=== PATIENT | female | born 1970 | race Caucasian/White ===

== ENCOUNTER → 2020-10-18 10:04 | Outpatient (REF) | payer OTHER, SELFPAY | LOC: HO.SL 10:04 | PROVIDERS: Visit Provider Internal Medicine | DX: G47.33 Obstructive sleep apnea (adult) (pediatric) (principal) | CPT/HCPCS: 95806 ==

== ENCOUNTER 2023-11-23 16:04 | Outpatient (AMB) | payer OTHER, SELFPAY ==
--- NOTE | 2023-11-23 16:10 | MHC.PC.OV ---
Vital Signs 11/23/23 16:15 Height 5 ft 2 in Weight 235 lb 8 oz BMI 43.1 BP 108/70 Blood Pressure Location Lt brachial Position Sitting Respiration 14 Pulse 72 Pulse Source Pulse Oximeter Temp 98.1 F Temp Source Oral Pulse Oximetry (%) 97 Intake Visit Reasons: rash right leg/all over legs/ nausea Intake Note: Rash on both legs. Shooting pain down left leg. Did yard work on Sunday, rash appeared on Sunday. Chest pain this morning that she initially thought was a heart attack but then assumed it was anxiety. She took anxiety pill and felt better. Feeling nauseous. Blood on toilet paper two days ago. Swallowed fly larvae that was in her walnuts on Sunday. Physical exam (Primary Care) Vital Signs: Last Vital Signs Temp 98.1 F 11/23/23 16:15 Pulse 72 11/23/23 16:15 Resp 14 11/23/23 16:15 BP 108/70 11/23/23 16:15 Pulse Ox 97 11/23/23 16:15 BMI result Body Mass Index 43.1 Coding
[2023-11-23 16:15] VITALS: BP 108/70; PULSE 72; RESP 14; TEMP 36.7; O2SAT 97; BMI 43.1
--- NOTE | 2023-11-23 16:19 | AM.OFFWIN_ITS ---
Intake Vital Signs 11/23/23 16:15 Height 5 ft 2 in Weight 235 lb 8 oz BMI 43.1 BP 108/70 Blood Pressure Location Lt brachial Position Sitting Respiration 14 Pulse 72 Pulse Source Pulse Oximeter Temp 98.1 F Temp Source Oral Pulse Oximetry (%) 97 Intake Visit Reasons: rash right leg/all over legs/ nausea Intake Note: Rash on both legs. Shooting pain down left leg. Did yard work on Sunday, rash appeared on Sunday. Chest pain this morning that she initially thought was a heart attack but then assumed it was anxiety. She took anxiety pill and felt better. Feeling nauseous. Blood on toilet paper two days ago. Swallowed fly larvae that was in her walnuts on Sunday. Patient Tobacco Use Status: Never used Tobacco Allergies No Known Allergies Allergy (Verified 11/23/23 16:20) Medication List - Last Reconciled 11/23/23 by Lauren Archuleta, [facility]- alprazolam . levothyroxine 100 mcg PO DAILY Do you need a note to return to daycare/school/sports/work: Yes Return to daycare/school/sports/work/other note: work HPI HPI Comments History of Present Illness Details 53 y/o F here today at the walk in for s everal complaints; she registered for a rash only I did tell her that i would only be able to treat the rash and that her other concerns would need a visit with her PCP. 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 This rash then spread to her left forearm, posterior left leg. It is itchy. Has been treated w/ rubbing alcohol. Has prednisone from her last episode but did not start to take it yet. Exam Awake alert NAD Rash c/w allergic dermatitis on right upper thigh proximal to knee, posterior left thigh and calf and 1 area on the left wrist anterior, all w/o signs of infection Plan hydroxyzine to help w itch and anxiety advised for her to take the prednisone she has 40 mg x2, 30mg x2, 20mg x 2 and 10 mg x 2 This note is constructed using voice recognition software. While every effort has been made to ensure accuracy in vulnerability assessment analyst, still errors may have been included Sometimes, these errors may affect the content or meaning of the given sentence . PFSH Social History Patient Tobacco Use Status: Never used Tobacco Physical Exam Vital Signs: Last Vital Signs Temp 98.1 F 11/23/23 16:15 Pulse 72 11/23/23 16:15 Resp 14 11/23/23 16:15 BP 108/70 11/23/23 16:15 Pulse Ox 97 11/23/23 16:15 BMI result Body Mass Index 43.1 Assessment & Plan Assessment & Plan (1) Poison stacy dermatitis: Code(s): L23.7 - Allergic contact dermatitis due to plants, except food Plan: .. (2) KRIS (generalized anxiety disorder): Code(s): F41.1 - Generalized anxiety disorder Plan: -.- Medications: New hydroxyzine HCl 25 mg PO TID PRN 30 tabs 0RF itching Patient Instructions: Advised to take the medication daily with food. If new lesions crop up while on the taper advised to return to the office as we may need to hold the taper and/or extend the taper to prevent recurrence. Advised to cover the areas to prevent spread using something like a Tegaderm. Wash linen to also help prevent spread. Continue to use the axhc-gki-dbsisua skin scrubs to help protect the rest of your skin. Do your best to avoid contact. Tecnu & Tegaderm dressing Coding Level of Care Code Est Pt Level 4 (88135) Diagnoses Poison stacy dermatitis L23.7 KRIS (generalized anxiety disorder) F41.1
== END 2023-11-23 16:40 | disposition home or self-care (01) ==
PROVIDERS: PCP Pediatrics; Visit Provider Nurse Practitioner Family
DX: L23.7 Allergic contact dermatitis due to plants, except food (principal); F41.1 Generalized anxiety disorder

== ENCOUNTER → 2023-11-23 16:04 | Outpatient (BNVA) | payer OTHER, SELFPAY | PROVIDERS: PCP Pediatrics | DX: L23.7 Allergic contact dermatitis due to plants, except food (principal); F41.1 Generalized anxiety disorder | CPT/HCPCS: 99212 ==

== ENCOUNTER 2024-08-27 07:57 | Outpatient (AMB) | payer OTHER, SELFPAY ==
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
[2024-08-27 08:04] VITALS: BMI 43.0
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
== END 2024-08-27 08:29 | disposition home or self-care (01) ==
LOC: HO.HOS 07:57
PROVIDERS: PCP Pediatrics; Visit Provider Orthopaedic Surgery
DX: M25.312 Other instability, left shoulder (principal)
CPT/HCPCS: 99203; G2211

== ENCOUNTER → 2024-08-27 07:59 | Outpatient (BNV) | payer OTHER, SELFPAY | PROVIDERS: Visit Provider Radiology Diagnostic Radiology | DX: M19.012 Primary osteoarthritis, left shoulder (principal) | CPT/HCPCS: 73030 ==

== ENCOUNTER 2024-08-27 08:24 | Outpatient (REF) | payer OTHER, SELFPAY ==
--- NOTE | ~2024-08-27 | XR_ITS ---
EXAMINATION: XR SHOULDER 2 OR MORE VIEWS LEFT HISTORY: M25.512 - Pain in left shoulder COMPARISON: There are no prior studies available for comparison. FINDINGS: Two views of the left shoulder are submitted. Osseous mineralization is normal. There is no fracture or dislocation. The glenohumeral joint is maintained. There is mild degenerative change of the AC joint with joint space narrowing and osteophyte formation. The soft tissues are unremarkable. XR/XR shoulder LT min 2V IMPRESSION: Mild degenerative change of the AC joint. Electronically signed by: Nii Hopper MD 08/27/2024 08:36 AM EDT
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
== END 2024-08-27 08:25 | disposition home or self-care (01) ==
LOC: HO.HOSX 08:24
PROVIDERS: Visit Provider Orthopaedic Surgery
DX: M25.312 Other instability, left shoulder (principal)
CPT/HCPCS: 73030; 99202

== ENCOUNTER 2024-09-21 10:57 | Outpatient (REF) | payer OTHER, SELFPAY | END 2024-09-21 10:58 | disposition home or self-care (01) | LOC: HO.MRI 10:57 | PROVIDERS: Visit Provider Orthopaedic Surgery | DX: Z13.89 Encounter for screening for other disorder (principal) ==

== ENCOUNTER 2024-09-25 19:43 | Outpatient (REF) | payer OTHER, SELFPAY ==
--- NOTE | ~2024-09-25 | MR_ITS ---
CLINICAL HISTORY: M25.312 - Other instability, left shoulder MR left shoulder without gadolinium Comparison: DX/SR - XR SHOULDER LT MIN 2V - 08/27/24 07:59 EDT Findings: No acute fracture or pathologic bone lesion. Moderate acromioclavicular and minimal glenohumeral osteoarthritis. Nondisplaced tearing of the posterior labrum, associated with a few tiny paralabral cysts. A larger paralabral or ganglion cyst at the posterosuperior aspect of the labrum within the spinoglenoid notch measures 2.1 x 1.2 x 1.4 cm in maximum dimensions. No glenohumeral joint effusion. Mild supraspinatus tendinopathy without discrete tear or retraction. The infraspinatus, teres minor, and subscapularis tendons are intact. No rotator cuff atrophy or fatty replacement. No infraspinatus muscle edema. The long head of the biceps is intact. IMPRESSION: 1. Mild supraspinatus tendinopathy. No measurable rotator cuff tear or retraction. 2. Nondisplaced tearing of the posterior labrum with few small paralabral cysts. A paralabral or ganglion cyst within the spinoglenoid notch measures up to 2.1 cm. No infraspinatus muscle edema to suggest suprascapular neuropathy. 3. Moderate acromioclavicular and minimal glenohumeral osteoarthritis. This document has been electronically signed by: Todd Bland DO on 09/26/2024 12:09:52
== END 2024-09-25 19:44 | disposition home or self-care (01) ==
LOC: HO.MRI 19:43
PROVIDERS: Visit Provider Orthopaedic Surgery
DX: M25.312 Other instability, left shoulder (principal)
CPT/HCPCS: 73221

== ENCOUNTER → 2024-09-25 19:52 | Outpatient (BNV) | payer OTHER, SELFPAY | PROVIDERS: Visit Provider Radiology Diagnostic Radiology | DX: M67.412 Ganglion, left shoulder (principal) | CPT/HCPCS: 73221 ==

== ENCOUNTER 2024-10-01 07:51 | Outpatient (AMB) | payer OTHER, SELFPAY ==
[2024-10-01 07:53] VITALS: BMI 43.0
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
--- OUTSIDE RECORDS SUMMARY | 2024-10-01 07:53 | XMS_ITS ---
Author Name [facility] Organization Unknown Care Team Organization Name Specialty Phone Email Start Date End Da te [facility] Katie Arango MD Primary Care 08/11/2022 10/22/2023 [facility] Yonatan Rodriguez Primary Care 01/10/2022
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
--- OUTSIDE RECORDS SUMMARY | 2024-10-01 07:53 | XMS_ITS | Clinical Summary ---
Author Organization [employer] Address [address] [facility] [address] [place] [address] Care Team Providers Care Supervisor Correspondence Section Name Role Phone Unavailable Primary Care Provider Unavailabl e Social History Tobacco Use Types Packs/Day Years Used Date Smoking Tobacco: Never Assessed Comments Unknown Sex and Gender Information Value Date Recorded Sex Assigned at Female 01/02/2022 10:23 AM EDT Legal Sex Female 10:23 AM EDT Gender Identity Female 01/02/2022 10:23 AM EDT Sexual Orientation Straight 01/02/2022 10 :23 AM EDT Plan of Treatment Health Maintenance Due Date Last Done Comments CT Colonography 1968 Colonoscopy 1968 Colorectal Cancer Screening 1968 Depression Screening 1968 FIT DNA/Cologuard 1968 FIT 1968 FOBT 1968 Sigmoidoscopy 1968 Disability Screening 1968 Alcohol/Substance Use Screening 1980 Tobacco Screening 1980 DTaP/Tdap/Td Vaccines (1 - Tdap) 1987 Hepatitis B Vaccines (1 of 3 - 19+ 3-dose series) 1987 Pap Smear 1989 Cervical Cancer Screening 1998 HPV/Cotest 1998 Mammogram 2008 Pneumococcal Vaccine: 50+ Ye ars (1 of 1 - PCV) 2018 Zoster Vaccines (1 of 2) 2018 COVID-19 Vaccine ( - 2023-2 5 season) 2023 Influenza Vaccine (#1) 2024 RSV Patients and Pa tients Aged 60 years or older (1 - 1-dose 75+ series) 2043 HIB Vaccines Aged Out No longer eligi [...] patient's age to complete this topic Meningococcal Vaccine Aged Out No xiao violeta eligible based on patient's age to complete this topic RSV under 20 months Aged Out No longe r eligible based on patient's age to complete this topic Rotavirus Vaccines Aged Out No longer eligible based on patient's age to complete this topic
== END 2024-10-01 08:08 | disposition home or self-care (01) ==
LOC: HO.HOS 07:51
PROVIDERS: Visit Provider Orthopaedic Surgery
DX: M25.512 Pain in left shoulder (principal)
CPT/HCPCS: 99213

== ENCOUNTER → 2024-10-01 07:51 | Outpatient (BNVA) | payer OTHER, SELFPAY | PROVIDERS: Visit Provider Orthopaedic Surgery | DX: Z71.2 Person consulting for explanation of examination or test findings (principal); M25.512 Pain in left shoulder | CPT/HCPCS: 99212 ==

== ENCOUNTER 2025-01-22 08:43 | Outpatient (AMB) | payer OTHER, SELFPAY ==
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
--- OUTSIDE RECORDS SUMMARY | 2025-01-22 09:57 | XMS_ITS | Encounter Summary ---
Author Organization [facility] Address [address] [facility] [address]t [place] [address] Care Team Providers Care Apn Name Role Phone Unavailable Primary Care Provider Unavailabl e Encounter Details Date Type Department Care Team (Latest Contact Info) Description 11/19/2018 Abstract [facility] CONVERSIONS Dental, Provider, DDS Social History Tobacco Use Types Packs/Day Years Used Date Smoking Tobacco: Never Assessed Comments Unknown Sex and Gender Information Value Date Recorded Sex Assigned at Female 01/02/2022 10:23 AM EDT Legal Sex Female 10:23 AM EDT Gender Identity Female 01/02/2022 10:23 AM EDT Sexual Orientation Straight 01/02/2022 10 :23 AM EDT documented as of this encounter Plan of Treatment Not on file documented as of this encounter Visit Diagnoses Not on filedocumented in this encounter
--- OUTSIDE RECORDS SUMMARY | 2025-01-22 09:57 | XMS_ITS | Clinical Summary ---
Author Organization [employer] Address [address] [facility] [address]t [place] [address] Care Team Providers Care Oracle Soa Architect Name Role Phone Unavailable Primary Care Provider [...] of 2) 2018 COVID-19 Vaccine ( - 2024-2 6 season) 2024 Influenza Vaccine (#1) 2024 RSV Patients and [...]
--- OUTSIDE RECORDS SUMMARY | 2025-01-22 09:57 | XMS_ITS | Clinical Summary ---
Author Organization [facility] Address [address] [place], [place] [id number] Phone Care Team Providers Care Wheel Polisher Name Role Phone Katie Arango MD Primary Care Provider Allergies Active Allergy Reactions Criticality Noted Date Comments Poison [place] Extract High 08/03/2023 Medications levothyroxine (SYNTHROID, LEVOTHROID) [...] Active Active Problems No known active problems Social History Tobacco Use Types Packs/Day Years [...] 2018 ZOSTER VACCINES (1 of 2) 2018 INFLUENZA VACCINE (#1) 2024 COVID-19 VACCINE (3 - 2024-2 6 season) 2024 06/28/2020, 06/07/2020 TSH LEVEL 01/23/2025 01/24/2024 LIPID PANEL 11/28/2027 11/27/2022 Adult Td,Tdap Booster 04/12/2033 04/12/2023 , 08/27/2012 RSV VACCINE (1 - 1-dose 75+ series) 2043 HEPATITIS A VACCINES Aged Out No long er eligible based on patient's age to complete this topic HIB VACCINES Aged Out No longer eligi ble based on patient's age to complete this topic IPV VACCINES Aged Out No longer eligi ble based on patient's age to complete this topic MENINGOCOCCAL VACCINES (ACWY) Aged Out No longer eligible based on patient's age to complete this topic MENINGOCOCCAL VACCINES (B) Aged Out N o longer eligible based on patient's age to complete this topic Medical Devices Not on file Insurance [employer] NON NSPG PCP SILVER CLARITY CONNECTORCARE WELLSENSE NON NSPG PCP SILVER CLARITY CONNECTORCARE WELLSENSE NON NSPG PCP SILVER CLARITY CONNECTORCARE WE[employer]ENSE NON NSPG PCP SILVER [employer]ITY [place] [address] [place] [address] NON NSPG PCP [employer] [place] [address] [place] [address] NON NSPG PCP S[employer] CONNE[employer]CARE SAF[employer]Y INSURANCE Care Teams Wheel Polisher Relationship Specialty Start Date End Date Katie Arango MD [address] [place] [phone] [email or web address] PCP - General 04/07/24 Additional Source Comments The information contained in this document represents components of the legal health record. It is not the complete legal health record.[facility]
--- OUTSIDE RECORDS SUMMARY | 2025-01-22 09:58 | XMS_ITS | Encounter Summary ---
Author Organization [facility] Address [address] [facility] [address] [place] [phone] Phone Care Team Providers Care Seafood Technology Specialist Name Role Phone Katie Arango MD Primary Care Provider Encounter Details Date Type Department Care Team (Late st Contact Info) Description 08/27/2024 Transcribe Orders [facility] [place] [address] [place] [address], 8th Floor, [address] [place] [address] [email or web address] Social History Tobacco Use Types Packs/Day Years [...] on filedocumented in this encounter Care Teams Seafood Technology Specialist Relationship Specialty Start Date End Date Katie Arango MD [address] [place] [phone] [email or web address] PCP - General 04/07/24 documented as of this encounter Additional Source Comments The information contained in this document represents components of the legal health record. It is not the complete legal health record.[facility]
== END 2025-01-22 09:08 | disposition home or self-care (01) ==
LOC: HO.HSM 08:44
PROVIDERS: Visit Provider Psychiatry & Neurology Neurology
DX: G31.84 Mild cognitive impairment of uncertain or unknown etiology (principal)
CPT/HCPCS: 99205

== ENCOUNTER → 2025-01-22 08:43 | Outpatient (BNVA) | payer OTHER, SELFPAY | PROVIDERS: Visit Provider Psychiatry & Neurology Neurology | DX: G31.84 Mild cognitive impairment of uncertain or unknown etiology (principal) | CPT/HCPCS: 99202 ==

== ENCOUNTER 2025-02-03 16:46 | Outpatient (REF) | payer OTHER, SELFPAY ==
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
--- OUTSIDE RECORDS SUMMARY | 2024-07-31 07:47 | XMS_ITS | Encounter Summary ---
Author Organization [facility] Address [address] [facility] [address] [place] [phone] Phone Care Team Providers Care Fire Pot Operator Name Role Phone Katie Arango MD Primary Care Provider Encounter Details Date Type Department Care Team (Late st Contact Info) Description 07/31/2024 8:47 AM EDT Hospital Encounter [facility] [address] [place] [address] Denice Brooks, SALESPERSON CHILDREN'S SHOES [address] [place] [address] [email or web address] Social History Tobacco Use Types Packs/Day Years [...] IMPRESSION: No displaced fracture. us Denice Brooks SALESPERSON CHILDREN'S SHOES IMG XR SPINE Final R esult documented in this encounter Visit Diagnoses Not on filedocumented in this encounter Care Teams Fire Pot Operator Relationship Specialty Start Date End Date Katie Arango MD [address] [place] [phone] [email or web address] PCP - General 04/07/24 documented as of this encounter Additional Source Comments The information contained in this document represents components of the legal health record. It is not the complete legal health record.[facility]
--- OUTSIDE RECORDS SUMMARY | 2025-02-03 08:40 | XMS_ITS | Encounter Summary ---
Author Organization [facility] Address [address] [place] [address] Care Team Providers Care Office Machinery Or Equipment Installer Name Role Phone Katie Arango MD Primary Care Provider Reason for Referral * Imaging (Routine) - Pending Review Specialty Diagnoses / Procedures Referred By Contac t Referred To Contact Radiology Diagnoses Acquired hypothyroidism Procedures US Head Neck Soft Tissue Ivan Candelaria MD [address] [place] [address] Phone: tel: fax: [facility] Referral ID Status Reason Start Date Expiration Date V isits Requested Visits Authorized [id number] Pending Review 02/03/2025 02/03/2026 1 1 Reason for Visit * Reason Comments Follow-up Thyroid Encounter Details Date Type Department Care Team (Late st Contact Info) Description 02/03/2025 8:40 AM EST Office Visit Endocrinology - [address] [phone] Ivan Candelaria MD [address] [place] [phone] Acquired hypothyroidism (Primary Dx) Social History Tobacco Use Types Packs/Day Years Used Date Smoking Tobacco: Never Smokeless Tobacco: Never Alcohol Use Standard Drinks/Week Comments Yes 0 (1 standard drink = 0.6 oz pur e alcohol) Comments No Sex and Gender Information Value Date Recorded Sex Assigned at Not on file Legal Sex Female 1:39 PM EST Gender Identity Not on file Sexual Orientation Not on file documented as of this encounter Last Filed Vital Signs Vital Sign Reading Time Taken Comments Blood Pressure 106/74 02/03/2025 8:51 AM EST Pulse 73 02/03/2025 8:51 AM EST Temperature - - Respiratory Rate - - Oxygen Saturation - - Inhaled Oxygen Concentration - - Weight 96.1 kg (211 lb 12.8 oz) 02/03/2025 8:51 AM EST Height - - Body Mass Index 38.74 10/15/2024 3:08 PM EDT documented in this encounter Progress Notes * Ivan Candelaria MD - 02/03/2025 8:40 AM EST Please have blood work done to check your thyroid hormone level. I have also ordered an ultrasound of your neck * Ivan Candelaria MD - 02/03/2025 8:40 AM EST CHIEF COMPLAINT: Follow-up (Thyroid) IDENTIFIER: Cathy Rosenthal is a 54 y.o. old female. HPI: Background: Patient reports that she was diagnosed with hypothyroidism many years ago. Weight changes: lost weight, on zepbound Constipation: no Menstrual cycles: irregular Fatigue: yes Skin/hair changes: Endorses dry skin. Patient is also complaining of noting a swollen in the left side of her neck. She denies dysphagia, dyspnea, hoarseness. Current thyroid medications: levothyroxine 100mcg daily. Takes it first thing in the morning on an empty stomach. Biotin use: no Amiodarone use: no [place] use: no Labs: TSH Lab Results Component Value Date TSH 1.47 01/24/2024 SH: Does not smoke Socially drinks alcohol No recreational drug use FH: not significant ACTIVE MEDICATIONS: Medications Taking[1] ALLERGIES: Poison oak extract PHYSICAL EXAM: Blood pressure 106/74, pulse 73, weight 96.1 kg (211 lb 12.8 oz). Body mass index is 38.74 kg/m??. GENERAL: Alert and oriented, in no acute distress. Well-nourished and well-hydrated. HEAD/NECK: Normocephalic and atraumatic. Thyroid normal to inspection and palpation. EYES: Pupils equal, round, and reactive to light (PERRLA). Extraocular movements intact. Conjunctivae clear. LUNGS: Lungs clear to auscultation bilaterally. No wheezes, rales, or rhonchi. CARDIOVASCULAR: Regular rate and rhythm. Normal S1 and S2 sounds. No murmurs or gallops. ABDOMEN: Soft, non-tender, and non-distended. Bowel sounds are active and normal. EXTREMITIES: No edema or deformities. Full range of motion in all joints. NEUROLOGICAL: Alert and oriented. Grossly nonfocal SKIN: Skin is warm, dry, and intact. IMPRESSION: 1. Acquired hypothyroidism 54-year-old female with past medical history of hypothyroidism presents to the clinic today for follow-up. She is currently on levothyroxine 100 mcg daily. Her last labs were in January 2024. Will obtain updated TFTs. Patient is also complaining of noting a swelling in her left anterior neck. Physical exam is normal. I will obtain an ultrasound of her thyroid to rule out any nodules. Follow-up in 6-months Orders Placed This Encounter Procedures US Head Neck Soft Tissue Standing Status: Future Expected Date: 02/03/2025 Expiration Date: 02/03/2026 In what REGION should this be scheduled?: [facility] [[id number]] Release to patient: Immediate [1] Thyroid stimulating hormone Standing Status: Future Expiration Date: 02/03/2026 Release to patient: Immediate [1] Thyroxine free Standing Status: Future Expiration Date: 02/03/2026 Release to patient: Immediate [1] ADDITIONAL ORDERS: US HEAD NECK SOFT TISSUE Ivan Candelaria MD Endocrinology, Diabetes, and Metabolism [1] Outpatient Medications Marked as Taking for the 02/03/25 encounter (Office Visit) with Ivan Keyes MD Medication Sig Dispense Refill albuterol 2.5 mg /3 mL (0.083 %) nebulizer solution Take 1 Vial by nebulization every 4 hours as needed for Wheezing for up to 180 days. albuterol HFA (PROAIR HFA ; PROVENTIL HFA ; VENTOLIN HFA) 90 mcg/actuation inhaler Inhale 2 Puffs into the lungs every 4 hours as needed for Cough or Wheezing. albuterol HFA (ProAir HFA) 90 mcg/actuation inhaler Inhale 2 puffs by mouth every 4 (four) hours ifneeded for wheezing or shortness of breath. 8.5 g 0 cyclobenzaprine (FLEXERIL) 5 mg tablet Take 1 tablet (5 mg total) by mouth 3 (three) times a day ifneeded for muscle spasms. 30 tablet 0 hydrOXYzine HCL (ATARAX) 25 mg tablet Take 1 tablet (25 mg total) by mouth 2 (two) times a day. 60 each 0 ibuprofen (ADVIL,MOTRIN) 800 mg tablet Take 1 tablet (800 mg total) by mouth every 8 (eight) hours if needed for moderate pain. 60 tablet 0 levothyroxine (SYNTHROID, LEVOTHROID) 100 mcg tablet Take 1 tablet (100 mcg total) by mouth 1 (one)time each day. 90 tablet 3 loratadine (CLARITIN) 10 mg tablet Take 1 Tablet by mouth daily for 360 days. tirzepatide, weight loss, (Zepbound) 12.5 mg/0.5 mL injection Inject 0.5 mL (12.5 mg total) under the skin every 7 (seven) days. 2 mL 0 documented in this encounter Plan of Treatment Upcoming Encounters Date Type Department Care Team (Late st Contact Info) Description 02/11/2025 5:45 PM EST Appointment Radiology Department [address] [phone] 02/17/2025 11:45 AM EST Office Visit Bariatric Surgery - [address] [phone] Sandhya Fuentes PA [address] [place] [phone] Scheduled Orders Name Type Priority Associated Diagnoses Orde r Schedule Thyroid stimulating hormone Lab Routine Acquired hypothyroidism 1 Occurrences starting 02/03/2025 until 02/03/2026 Thyroxine free Lab Routine Acquired hypothyroidism 1 Occurrences starting 02/03/2025 until 02/03/2026 US Head Neck Soft Tissue Imaging Routine Acquired hypothyroidism Expected: 02/03/2025, Expires: 02/03/2026 documented as of this encounter Visit Diagnoses Diagnosis Acquired hypothyroidism- Primary Unspecified hypothyroidism documented in this encounter Care Teams Office Machinery Or Equipment Installer Relationship Specialty Start Date End Date Katie Arango MD [address] [place] [address] PCP - General Internal Medicine 09/29/21 documented as of this encounter
--- OUTSIDE RECORDS SUMMARY | 2025-02-03 17:24 | XMS_ITS | Clinical Summary ---
Author Organization [facility] Address [address] [place], [place] [phone] Phone Care Team Providers Care Mobile Sales Consultant Name Role Phone Katie Arango MD Primary Care Provider Allergies Active Allergy Reactions Criticality Noted Date Comments Poison [place] Extract High 08/03/2023 Medications levothyroxine (SYNTHROID, LEVOTHROID) [...] topic Medical Devices Not on file Insurance [facility] NON NSPG PCP SILVER CLARITY CONNECTORCARE WE[employer] NON NSPG PCP SILVER CLARITY CONNECTORCARE WE[employer] NON NSPG PCP SILVER CLARITY CONNECTORCARE WELL[employer] NON NSPG PCP SILVER CL[employer]ITY [place] [address] [place] [address] NON NSPG PCP [facility] [place] [address] [place] [address] NON NSPG PCP [facility] [employer] SAF[employer]Y INSURANCE Care Teams Mobile Sales Consultant Relationship Specialty Start Date End Date Katie Arango MD [address] [place] [phone] [email or web address] PCP - General 04/07/24 Additional Source Comments The information contained in this document represents components of the legal health record. It is not the complete legal health record.[facility]
--- OUTSIDE RECORDS SUMMARY | 2025-02-03 17:24 | XMS_ITS | Encounter Summary ---
Author Organization [employer] Address [address] [facility] [address]t [place] [address] Care Team Providers Care Budget Counselor Name Role Phone Unavailable Primary Care Provider Unavailabl e Encounter Details Date Type Department Care Team (Latest Contact Info) Description 11/19/[address] [facility] CONVERSIONS Dental, Provider, DDS Social History Tobacco [...]
--- OUTSIDE RECORDS SUMMARY | 2025-02-03 17:24 | XMS_ITS | Clinical Summary ---
Author Organization [employer] Address [address] [facility] 7t [place] [address] Care Team Providers Care Substance Abuse Therapist Name Role Phone Unavailable Primary Care Provider [...]
--- OUTSIDE RECORDS SUMMARY | 2025-02-03 17:24 | XMS_ITS | Encounter Summary ---
Author Organization [facility] Address [address] [facility] [address] [place] [phone] Phone Care Team Providers Care Ticket Attendant Name Role Phone Katie Arango MD Primary Care Provider Encounter Details Date Type Department Care Team (Late st Contact Info) Description 08/27/2024 Transcribe Orders [facility] [place] Department of Neurology [address] [place] [address], 8th Floor, [address] [place] [address] Beverly [email or web address] Social History Tobacco Use Types [...] on filedocumented in this encounter Care Teams Ticket Attendant Relationship Specialty Start Date End Date Katie Arango MD [address] [place] [phone] [email or web address] PCP - General 04/07/24 documented as of this encounter Additional Source Comments The information contained in this document represents components of the legal health record. It is not the complete legal health record.[facility]
--- OUTSIDE RECORDS SUMMARY | 2025-02-03 17:24 | XMS_ITS | Clinical Summary ---
Author Organization [address] Address [address] [place] [address] Phone Care Team Providers Care Laminator Preforms Name Role Phone Katie Arango MD Primary Care Provider Allergies Active Allergy Reactions Criticality Noted Date Comments Poison [place] Extract High 08/03/2023 Medications loratadine (CLARITIN) 10 mg tablet Take 1 Tablet by mouth daily for 360 days. 07/12/19 24 026 Active albuterol HFA (PROAIR HFA ; PROVENTIL [...] 90 tablet 3 01/30/20 24 Active ibuprofen (ADVIL,MOTRIN ) 800 mg tablet Take 1 tablet (800 mg total) by mouth every 8 (eight) hours if needed for moderate pain. 60 tablet 04/16/19 25 Active albuterol HFA (ProAir HFA) 90 mcg/actuation inhaler Inhale 2 puffs by mouth every 4 (four) hours if needed for wheezing or shortness of breath. 8.5 g 04/16/19 25 026 Active cyclobenzapri ne (FLEXERIL) 5 mg tablet Take 1 tablet (5 mg total) by mouth 3 (three) times a day if needed for muscle spasms. 30 tablet 08/01/19 25 Active hydrOXYzine HCL (ATARAX) 25 mg tablet Take 1 tablet (25 mg total) by mouth 2 (two) times a day. 60 each 01/10/20 25 025 Active tirzepatide, weight loss, (Zepbound) 12.5 mg/0.5 mL injection Inject 0.5 mL (12.5 mg total) under the skin every 7 (seven) days. 2 mL 02/03/20 25 Active phentermine 15 mg capsule Take 1 capsule (15 mg total) by mouth 1 (one) time each day before breakfast. Max Daily Amount: 15 mg 30 each 07/26/19 25 025 Discontinued(A lternate therapy) tirzepatide, weight loss, (Zepbound) 7.5 mg/0.5 mL injection Inject 0.5 mL (7.5 mg total) under the skin every 7 (seven) days. 2 mL 12/11/19 25 025 Discontinued tirzepatide, weight loss, (Zepbound) 10 mg/0.5 mL injection Inject 0.5 mL (10 mg total) under the skin every 7 (seven) days for 28 days. 2 mL 01/09/20 25 025 Discontinued Active Problems Problem Noted Date Diagnosed Date Anxiety 12/25/2023 Obesity 12/25/2023 Overview (12/25/2023): Followed by [facility] Weight Mgmt Posttraumatic stress disorder 12/25/2023 [...] Encounters Date Type Department Care Team Description 02/03/2025 8:40 AM EST Office Visit Endocrinology [address] [phone] Ivan Candelaria MD Acquired hypothyroidism (Primary Dx) 02/02/2025 Telephone Bariatric Surgery [address] [phone] Sandhya Fuentes PA 01/09/2025 12:30 PM EST Office Visit Adult Medicine [address] [phone] Claudia Og PA Bee sting, accidental or unintentional, subsequent encounter (Primary Dx) 01/07/2025 Telephone Adult Medicine [address] [phone] Katie Arango MD 01/07/2025 Telephone Bariatric Surgery [address] [phone] Sandhya Fuentes PA 12/10/2024 Telephone Bariatric Surgery [address] [phone] Sandhya Fuentes PA 11/10/2024 Telephone Bariatric Surgery [address] [phone] Sandhya Fuentes PA from Last 3 Months Immunizations Immunization Administration Dates Next Due Tdap Tetanus diptheria acell ular pertussis (Boostrix; Adacel) 7yo and older 04/12/2023,08/27/2012 Surgical History Surgery Date Site/Laterality Comments TUBAL LIGATION 1999 PROCEDURE: HISTORICAL TUBAL LIGATION OTHER SURGICAL HISTORY 1991 PROCEDURE: CO UNLISTED PROCEDURE VESTIBULE MOUTH; COMMENT: wisdom teeth [...] Pulse 73 02/03/2025 8:51 AM EST Temperature 36.3 C (97.4 F) 01/09/2025 12:36 PM EST Respiratory Rate 16 06/19/2024 7:37 AM EDT Oxygen Saturation 98% 01/09/2025 12: 36 PM EST Inhaled Oxygen Concentration - - Weight 96.1 kg (211 lb 12.8 oz) 02/03/2025 8:51 AM EST Height 157.5 cm (5' 2 ) 10/15/2024 3:08 PM EDT Body Mass Index 38.74 10/15/2024 3:08 PM EDT Plan of Treatment Upcoming Encounters Date Type Department Care Team (Late st Contact Info) Description 02/11/2025 5:45 PM EST Appointment Radiology Department [address] [phone] 02/17/2025 11:45 AM EST Office Visit Bariatric Surgery - [address] [place] [phone] Sandhya Fuentes PA [facility] [place] [phone] Health Maintenance Due Date Last Done Comments Hepatitis B Vaccines (1 of 3 - 19+ 3-dose series) 1987 Zoster Vaccines (1 of 2) 1987 Pneumococcal Vaccine: 50+ Years (1 of 1 - PCV) 2018 RSV Immunization Adult Patients (1 - Risk 50-74 years 1-dose series) 2018 COVID-19 Vaccine (3 - Pfizer risk series) 07/26/2020 06/28/2020, 06/07/2020 HIV Screening 02/11/2022 Social Influencers of Health Screening 02/11/2022 Depression Screening 03/05/2024 09/20/2023 Influenza Vaccine (#1) 2024 Breast Cancer Screening 06/06/2025 06/07/2023 Cervical Cancer Screening: HPV 12/21/2026 12/21/2021 Cholesterol Screening (Lipid Panel) 11/28/2027 11/27/2022 Colorectal Cancer Screening: Colonoscopy 09/02/2028 09/02/2018, 09/02/2018 DTaP,Tdap,and Td Vaccines (3 - Td [...] Procedure Name Priority Date/Time Associated Diagnosis Comments HEPATITIS C VIRUS QUANTITATIVE PCR Routine 07/15/2024 1:26 PM EDT Positive hepatitis C antibody test DEPRESSION SCREENING Routine 09/20/2023 EXTERNAL MAMMOGRAM REPORT Routine 06/07/2023 6:41 AM EDT LIPID PANEL Routine 11/27/2022 HPV Routine 12/21/2021 COLONOSCOPY Routine 09/02/2018 from Last 3 Months or Most Recently Relevant to Health Maintenance Results * Hepatitis C virus quantitative molecular study (07/15/2024 1:26 PM EDT) HCV Qual Interp Not Detected Not Detected LAB MOLECULAR DIAGNOSTICS METHOD 07/16/2024 8:29 AM EDT [facility] Comment:HCV RNA not detected , unable to report quantitative results. Blood Venous blood specimen / Unknown Venipuncture / Unknown 07/15/2024 1:26 PM EDT 07/15/2024 1:26 PM EDT us Jorge REYES LAB BLOOD ORDERABLES Final Re sult [facility] [address] [place] [address], [place] [phone] * Depression Screening (09/20/2023) Depression Screening Abstracted us Historical Provider HEALTH MAINTENANCE Final Result * External Mammogram Report (06/07/2023 6:41 AM EDT) Anatomical Region Laterality Modality Mammography Historical Provider IMG BI PROCEDURES Final R esult * (ABNORMAL) Lipid panel (11/27/2022) [facility] LDL/HDL Ratio 4 0 - 4 Triglycerides 78 0 - 150 mg/dL Cholesterol 196 0 - 200 mg/dL HDL 47 >=40 mg/dL LDL Cholesterol 134(A) 0 - 100 mg/dL Blood Venous blood specimen / Unknown [facility] Provider LAB BLOOD ORDERABLES Bonnie l Result * Cervical Cancer Screening: HPV (12/21/2021) [facility] Cervical Cancer Screening: HPV Negative, Abstracted [facility] Provider HEALTH MAINTENANCE Final Result * Colonoscopy (09/02/2018) [facility] Colonoscopy Normal, Abstracted Anatomical Region Laterality Modality Other [facility] Provider HEALTH MAINTENANCE Final Result from Last 3 Months or Most Recently Relevant to Health Maintenance Insurance [facility] [employer] [address] PLAN Care Teams Laminator Preforms Relationship Specialty Start Date End Date Katie Arango MD [address] [place] [phone] PCP - General Internal Medicine 09/29/21
--- OUTSIDE RECORDS SUMMARY | 2025-02-03 17:24 | XMS_ITS | Encounter Summary ---
Author Organization [facility] Address [address] [place] [address] Care Team Providers Care Decorating Inspector Name Role Phone Katie Arango MD Primary Care Provider Reason for Visit * Reason Onset Date Comments Med Refill 02/02/2025 Encounter Details Date Type Department Care Team (Late st Contact Info) Description 02/02/2025 Telephone Bariatric Surgery - [address] [place] [phone] Sandhya Fuentes PA [address] [place] [phone] Social History Tobacco Use Types Packs/Day Years [...] on file documented as of this encounter Ordered Prescriptions Prescription Sig Dispense Quantity Refills Last Filled Start Date End Date tirzepatide, weight loss, (Zepbound) 12.5 mg/0.5 mL injection Inject 0.5 mL (12.5 mg total) under the skin every 7 (seven) days. 2 mL 02/02/2025 documented in this encounter Progress Notes * Dahiana Steven - 02/02/2025 1:40 PM EST Patient did well on Zepbound 10 mgs and would like a refill with titration. If appropriate, please send script for Zepbound 12.5 mgs to their pharmacy. The patient does have a follow up in 02/17/2025 documented in this encounter Plan of Treatment Upcoming Encounters Date Type Department Care Team (Late st Contact Info) Description 02/11/2025 5:45 PM EST Appointment Radiology Department [address] [phone] 02/17/2025 11:45 AM EST Office Visit Bariatric Surgery - [address] [place] [address] Sandhya Fuentes PA [address] [place] [phone] documented as of this encounter Visit Diagnoses Not on filedocumented in this encounter Discontinued Medications Medication Sig Discontinue Reason Start Date End Da te tirzepatide, weight loss, (Zepbound) 10 mg/0.5 mL injection Inject 0.5 mL (10 mg total) under the skin every 7 (seven) days for 28 days. 01/08/2025 02/02/2025 documented as of this encounter Care Teams Decorating Inspector Relationship Specialty Start Date End Date Katie Arango MD [address] [place] [phone] PCP - General Internal Medicine 09/29/21 documented as of this encounter
[2025-02-03 18:51] LABS: Thyroid Stimulating Hormone 1.99 uIU/mL (0.32-4.0)
[2025-02-03 19:04] LABS: Folate 10.1 ng/mL (> or = 4.0); Vitamin B12 249 pg/mL (200-900)
[2025-02-07 06:53] LABS: ABETA 42/40 Ratio 0.163 (> OR = 0.170); Alzeheimer's Interpretation Low Likelihood; Tau protein phosphorylated 217 0.27 pg/mL (< OR = 0.15)
== END 2025-02-03 16:47 | disposition home or self-care (01) ==
LOC: HO.LAB 16:46
PROVIDERS: PCP Family Medicine; Visit Provider Psychiatry & Neurology Neurology
DX: G31.84 Mild cognitive impairment of uncertain or unknown etiology (principal)
CPT/HCPCS: 36415; 82233; 82234; 82607; 82746; 84393; 84443

== ENCOUNTER → 2025-02-24 19:17 | Outpatient (BNV) | payer OTHER, SELFPAY | PROVIDERS: PCP Family Medicine; Visit Provider Radiology Diagnostic Radiology | DX: G31.84 Mild cognitive impairment of uncertain or unknown etiology (principal) | CPT/HCPCS: 70551 ==

== ENCOUNTER 2025-02-24 19:18 | Outpatient (REF) | payer OTHER, SELFPAY ==
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
--- OUTSIDE RECORDS SUMMARY | 2024-07-31 07:47 | XMS_ITS | Encounter Summary ---
Author Organization [facility] Address [address] [facility] [address] [place] [phone] Phone Care Team Providers Care Bullard Operator Name Role Phone Katie Arango MD Primary Care Provider Encounter Details Date Type Department Care Team (Late st Contact Info) Description 07/31/2024 8:47 AM EDT Hospital Encounter [facility] [address] [place] [address] Denice Brooks, BODY AND FRAME MAN [address] [place] [address] [email or web address] Social [...] IMPRESSION: No displaced fracture. us Denice Brooks BODY AND FRAME MAN IMG XR SPINE Final R esult documented in this encounter Visit Diagnoses Not on filedocumented in this encounter Care Teams Bullard Operator Relationship Specialty Start Date End Date Katie Arango MD [address] [place] [phone] [email or web address] PCP - General 04/07/24 documented as of this encounter Additional Source Comments The information contained in this document represents components of the legal health record. It is not the complete legal health record.[facility]
--- NOTE | ~2025-02-24 | MR_ITS ---
EXAMINATION: MR BRAIN WITHOUT IV CONTRAST HISTORY: G31.84 - Mild cognitive impairment of uncertain or unknown etiology TECHNIQUE: Sagittal T1, and axial T1, FLAIR, T2, gradient echo, and diffusion weighted MR images of the brain were obtained. COMPARISON: There are no prior studies available for comparison. FINDINGS: The pituitary is normal in size. The cerebellar tonsils are normally located. A few scattered punctate periventricular and subcortical white matter hyperintensities are noted on the FLAIR and T2-weighted images which are nonspecific, but can be seen in the setting of small vessel ischemic disease. There is no mass effect or midline shift. The ventricular system is normal in size and configuration. No intra or extra-axial fluid collections are identified. There are no foci of restricted diffusion. Normal vascular flow voids are noted in the basilar and carotid arteries. The visualized paranasal sinuses are clear. MR/MR head/brain wo con IMPRESSION: Findings suggestive of minimal small vessel ischemic disease of the white matter. Otherwise unremarkable MRI of the brain without contrast. Electronically signed by: Nii Hopper MD 02/25/2025 10:01 AM EMMANUEL
--- OUTSIDE RECORDS SUMMARY | 2025-02-24 19:24 | XMS_ITS | Encounter Summary ---
Author Organization [employer] Address [address] [facility] [address] [place] [address] Care Team Providers Care Graphics Manager Name Role Phone Unavailable Primary Care Provider Unavailabl e Encounter Details Date Type Department Care Team (Latest Contact Info) Description 11/19/2018 Abstract [facility] CONVERSIONS Dental, Provider, DDS Social History Tobacco [...]
--- OUTSIDE RECORDS SUMMARY | 2025-02-24 19:24 | XMS_ITS | Clinical Summary ---
Author Organization [employer] Address [address] [facility] [address] [facility] [address] [place] [address] Care Team Providers Care Will Call Clerk Name Role Phone Unavailable Primary Care Provider [...]
--- OUTSIDE RECORDS SUMMARY | 2025-02-24 19:24 | XMS_ITS | Clinical Summary ---
Author Organization [facility] Address [address] [place], [place] [address] Phone Care Team Providers Care Welding Estimator Name Role Phone Katie Arango MD Primary Care Provider Allergies Active Allergy Reactions Criticality Noted Date Comments Poison [place] Extract High 08/03/2023 Medications levothyroxine (SYNTHROID, LEVOTHROID) [...] topic Medical Devices Not on file Insurance [facility] NON NSPG PCP [employer] NON NSPG PCP [employer] NON NSPG PCP S[employer] NON NSPG PCP [employer] [place] [address] [place] [id number] NON NSPG PCP [facility] [place] [address] [place] [id number] NON NSPG PCP [facility] [employer] INSURANCE Care Teams Welding Estimator Relationship Specialty Start Date End Date Katie Arango MD [address] [place] [phone] [email or web address] PCP - General 04/07/24 Additional Source Comments The information contained in this document represents components of the legal health record. It is not the complete legal health record.[facility]
--- OUTSIDE RECORDS SUMMARY | 2025-02-24 19:24 | XMS_ITS | Encounter Summary ---
Author Organization [facility] Address [address] [facility] [address] [place] [phone] Phone Care Team Providers Care Histopathologist Name Role Phone Katie Arango MD Primary Care Provider Encounter Details Date Type Department Care Team (Late st Contact Info) Description 08/27/2024 Transcribe Orders [facility] [address] [place] [address], [address] Floor, [address] [place] [address] [email or web address] Social History Tobacco Use Types Packs/Day Years [...] on filedocumented in this encounter Care Teams Histopathologist Relationship Specialty Start Date End Date Katie Arango MD [address] [place] [phone] [email or web address] PCP - General 04/07/24 documented as of this encounter Additional Source Comments The information contained in this document represents components of the legal health record. It is not the complete legal health record.[facility]
== END 2025-02-24 19:19 | disposition home or self-care (01) ==
LOC: HO.MRI 19:18
PROVIDERS: PCP Family Medicine; Visit Provider Psychiatry & Neurology Neurology
DX: G31.84 Mild cognitive impairment of uncertain or unknown etiology (principal)
CPT/HCPCS: 70551